=== PATIENT | female | born 1980 | race Caucasian/White ===

== ENCOUNTER 2017-12-12 18:08 | Emergency (ER) | payer MEDICAID ==
--- NOTE | 2017-12-12 19:22 | XRAY Report ---
Reason: soa, cough, hypoxia Procedure Date: 12/12/2017 Accession Number: [id number] / [id number] Procedure: XR - Chest 2 View X-Ray CPT Code: 70332 FULL RESULT: EXAM: CHEST RADIOGRAPHY EXAM DATE: 12/12/2017 07:01 PM. CLINICAL HISTORY: Dyspnea COMPARISON: None. TECHNIQUE: 2 views. FINDINGS: Lungs/Pleura: No focal opacities evident. No pleural effusion. No pneumothorax. Normal volumes. Mediastinum: Heart and mediastinal contours are unremarkable. Other: None. IMPRESSION: No acute intrathoracic plain film abnormality. RADIA
[2017-12-12] MEDS ORDERED: SODIUM CHLORIDE 0.9% 1,000 ML IV ONE (19:41)
[2017-12-12 19:45] LABS: MUDS CUTOFF CONCENTRATIONS CUTOFF CONC BELOW:
[2017-12-12 19:57] LABS: BILIRUBIN,URINE NEGATIVE (NEGATIVE); GLUCOSE, URINE (UA) 250 mg/dL (NEGATIVE); KETONES,URINE (UA) TRACE mg/dL (NEGATIVE); LEUKOCYTE ESTERASE, URINE MODERATE (NEGATIVE); NITRITE,URINE POSITIVE (NEGATIVE); OCCULT BLOOD,URINE NEGATIVE (NEGATIVE); PH,URINE 6.5 PH (5.0-7.5); PROTEIN,URINE 100 mg/dL (NEGATIVE); UROBILINOGEN,URINE >=8.0 E.U./dL (NORMAL)
[2017-12-12 20:00] LABS: ALBUMIN 3.5 g/dL (3.2-5.5); ALBUMIN/GLOBULIN RATIO 1.1 (1.0-2.2); ALKALINE PHOSPHATASE 96 IU/L (42-121); ALT ALANINE AMINOTRANSFERASE 90 IU/L (10-60); AST ASPARTATE AMINOTRANSFERASE 133 IU/L (10-42); BILIRUBIN,TOTAL 1.7 mg/dL (0.2-1.0); BUN - BLOOD UREA NITROGEN < 5 mg/dL (6-20); CALCIUM 8.7 mg/dL (8.5-10.3); CARBON DIOXIDE - CO2 26 mmol/L (21-32); CHLORIDE 100 mmol/L (101-111); CREATININE 0.4 mg/dL (0.4-1.0); GFR - MDRD 181 (>89); GLUCOSE 100 mg/dL (70-100); LIPASE 66 U/L (22-51); MAGNESIUM 1.7 mg/dL (1.7-2.8); SODIUM 137 mmol/L (135-145); TOTAL PROTEIN 6.8 g/dL (6.7-8.2)
[2017-12-12 20:01] LABS: BASOPHILS # (AUTO) 0.3 10^3/uL (0.0-0.1); BASOPHILS % (AUTO) 3.6 %; EOSINOPHILS # (AUTO) 0.1 10^3/uL (0.0-0.7); EOSINOPHILS % (AUTO) 1.8 %; HGB - HEMOGLOBIN 10.6 g/dL (12.0-16.0); LYMPHOCYTES # (AUTO) 1.1 10^3/uL (1.5-3.5); LYMPHOCYTES % (AUTO) 14.2 %; MEAN CORPUSCULAR HEMOGLOBIN 38.1 pg (27.0-31.0); MEAN CORPUSCULAR HGB CONC 34.1 g/dL (32.0-36.0); MEAN CORPUSCULAR VOLUME 111.8 fL (81.0-99.0); MEAN PLATELET VOLUME 8.6 fL (7.9-10.8); MONOCYTES # (AUTO) 0.9 10^3/uL (0.0-1.0); MONOCYTES % (AUTO) 12.2 %; NEUTROPHILS # (AUTO) 5.2 10^3/uL (1.5-6.6); NEUTROPHILS % (AUTO) 68.2 %; PLT - PLATELET COUNT 435 10^3/uL (130-450); RED BLOOD COUNT 2.79 10^6/uL (4.20-5.40); RED CELL DISTRIBUTION WIDTH 16.1 % (12.0-15.0); WHITE BLOOD COUNT 7.7 x10^3/uL (4.8-10.8)
[2017-12-12 20:02] LABS: CLARITY,URINE CLOUDY (CLEAR)
[2017-12-12 20:03] LABS: AMPHETAMINE SCREEN,URINE NEGATIVE (NEGATIVE); BENZODIAZEPINES SCREEN, URINE POSITIVE (NEGATIVE); COCAINE SCREEN URINE NEGATIVE (NEGATIVE); METHADONE SCREEN, URINE NEGATIVE (NEGATIVE); METHAMPHETAMINES SCREEN, URINE NN (NEGATIVE); OPIATE SCREEN, URINE NEGATIVE (NEGATIVE); OXYCODONE SCREEN, URINE NEGATIVE (NEGATIVE); PROPOXYPHENE SCREEN, URINE NEGATIVE (NEGATIVE); TRICYCLIC ANTIDEPRESSANT,URINE NEGATIVE (NEGATIVE)
[2017-12-12 20:04] LABS: BACTERIA,URINE Many /HPF (None Seen); RBC,URINE 0-5 /HPF (0-5); SQUAMOUS EPITHELIAL CELL,UR FEW Squamous (<= Few)
[2017-12-12 20:20] LABS: HCG,QUALITATIVE BLOOD NEGATIVE
--- NOTE | 2017-12-12 20:30 | ED Physician Documentation ---
History of Present Illness - Stated complaint Stated Complaint: DIZZY, FREQUENCY URINATING - Chief complaint Chief Complaint: Neuro - History obtained from History obtained from: Patient - Additonal information Additional information: 36-year-old female presents the emergency department with increasing dizziness, lightheadedness, shortness of breath and general weakness over the past several days. The patient reports having increased cystitis, the patient has chronic cystitis. The patient reports taking [id number] Pyridium to help manage her symptoms. The patient has had multiple bottles and in the past 2 days is almost gone through one bottle. Symptoms are described as severe. No relieving factors. No other associated symptoms Review of Systems Constitutional: reports: Fatigue Eyes: denies: Discharge Ears: denies: Ear pain Nose: denies: Congestion Throat: denies: Sore throat Cardiac: denies: Chest pain / pressure Respiratory: reports: Dyspnea GI: denies: Abdominal Pain : reports: Dysuria Skin: denies: Rash Musculoskeletal: denies: Neck pain, Extremity pain Neurologic: reports: Generalized weakness. denies: Altered mental status, Unresponsive Immunocompromised: denies: Chemotherapy PD PAST MEDICAL HISTORY - Past Medical History Past Medical History: No Cardiovascular: None Respiratory: None Neuro: None Endocrine/Autoimmune: None GI: None [employer]ETING [employer]ENT: None : Chronic bladder infection HEENT: None Psych: None Musculoskeletal: None Derm: None - Past Surgical History Past Surgical History: No - Present Medications Home Medications: Ambulatory Orders Medication Instructions Recorded Confirmed Cephalexin [Keflex] 500 mg PO BID #14 capsule 12/12/17 - Allergies Allergies/Adverse Reactions: Allergies Allergy/AdvReac Type Severity Reaction Status Date / Time No Known Drug Allergies Allergy Verified 12/12/17 19:28 - Social History Does the pt smoke?: Yes Smoking Status: Current some day smoker Does the pt drink ETOH?: Yes Does the pt have substance abuse?: No - Immunizations Immunizations are current?: Yes - POLST Patient has POLST: No PD ED PE NORMAL - General General: Alert and oriented X 3 - HEENT HEENT: Atraumatic, PERRL, EOMI, Ears normal - Cardiac Cardiac: Strong equal pulses, Other (Regular rhythm, tachycardia) - Respiratory Respiratory: No respiratory distress, Clear bilaterally - Abdomen Abdomen: Soft, Non tender - Derm Derm: Normal color - Extremities Extremities: No deformity, Normal ROM s pain - Neuro Neuro: Alert and oriented X 3, Normal speech - Psych Psych: Normal mood Results - Vitals Vitals: Vital Signs - 24 hr 12/12/17 12/12/17 12/12/17 18:26 19:09 20:30 Temperature 36.2 C L Heart Rate 124 H 100 Respiratory 18 100 H Rate Blood Pressure 110/72 122/100 H O2 Saturation 85 L 92 89 L 12/12/17 12/12/17 12/12/17 22:02 22:28 22:58 Temperature Heart Rate 95 89 103 H Respiratory 16 13 15 Rate Blood Pressure 107/74 107/74 105/84 H O2 Saturation 90 L 89 L 96 12/12/17 12/12/17 12/12/17 23:00 23:05 23:45 Temperature 37.2 C Heart Rate 100 102 H 109 H Respiratory 17 17 18 Rate Blood Pressure 105/84 H 114/85 H 102/75 O2 Saturation 95 94 94 Oxygen O2 Source Room air Oxygen Flow Rate 15 - EKG (time done) 19:22 Rate: Rate (enter#) Rhythm: NSR Intervals: Normal ME, QRS normal QRS: Normal Ischemia: Normal ST segments - Labs Labs: Laboratory Tests 12/12/17 12/12/17 12/12/17 19:14 19:40 19:40 WBC 7.7 RBC 2.79 L Hgb 10.6 L Hct 31.2 L MCV 111.8 H MCH 38.1 H MCHC 34.1 RDW 16.1 H Plt Count 435 MPV 8.6 Neut # (Auto) 5.2 Lymph # (Auto) 1.1 L Gilchrist # (Auto) 0.9 Eos # (Auto) 0.1 Baso # (Auto) 0.3 H Absolute Nucleated RBC 0.00 Nucleated RBC % 0.0 Manual Slide Review Indicated Bld Gas Analysis Time Sample Site ABG pH ABG pCO2 ABG pO2 ABG HCO3 ABG Total CO2 ABG O2 Saturation ABG Oximetry Spot Check ABG Base Excess ABG Hemoglobin ABG Oxyhemoglobin ABG Carboxyhemoglobin ABG Methemoglobin Terrell Test O2 Delivery Device O2 Liters/Min Sodium 137 Potassium 3.0 L Chloride 100 L Carbon Dioxide 26 Anion Gap 11.0 BUN < 5 L Creatinine 0.4 Estimated GFR (MDRD) 181 Glucose 100 Calcium 8.7 Magnesium 1.7 Total Bilirubin 1.7 H AST 133 H ALT 90 H Alkaline Phosphatase 96 Troponin I Total Protein 6.8 Albumin 3.5 Globulin 3.3 Albumin/Globulin Ratio 1.1 Lipase 66 H Serum HCG, Qual Urine Color DK. ORANGE Urine Clarity CLOUDY Urine pH 6.5 Ur Specific Rincon 1.010 Urine Protein 100 H Urine Glucose (UA) 250 H Urine Ketones TRACE Urine Occult Blood NEGATIVE Urine Nitrite POSITIVE H Urine Bilirubin NEGATIVE Urine Urobilinogen >=8.0 H Ur Leukocyte Esterase MODERATE H Urine RBC 0-5 Urine WBC 6-10 H Ur Squamous Epith Cells FEW Squamous Urine Bacteria Many H Ur Microscopic Review INDICATED Urine Culture Comments INDICATED Salicylates Urine Opiates Screen NEGATIVE Ur Oxycodone Screen NEGATIVE Urine Methadone Screen NEGATIVE Ur Propoxyphene Screen NEGATIVE Acetaminophen Ur Barbiturates Screen NEGATIVE Ur Tricyclics Screen NEGATIVE Ur Phencyclidine Scrn NEGATIVE Ur Amphetamine Screen NEGATIVE U Methamphetamines Scrn NN U Benzodiazepines Scrn POSITIVE H Urine Cocaine Screen NEGATIVE U Cannabinoids Screen POSITIVE H Ethyl Alcohol 8.8 12/12/17 12/12/17 12/12/17 19:40 19:40 19:40 WBC RBC Hgb Hct MCV MCH MCHC RDW Plt Count MPV Neut # (Auto) Lymph # (Auto) Gilchrist # (Auto) Eos # (Auto) Baso # (Auto) Absolute Nucleated RBC Nucleated RBC % Manual Slide Review Bld Gas Analysis Time Sample Site ABG pH ABG pCO2 ABG pO2 ABG HCO3 ABG Total CO2 ABG O2 Saturation ABG Oximetry Spot Check ABG Base Excess ABG Hemoglobin ABG Oxyhemoglobin ABG Carboxyhemoglobin ABG Methemoglobin Terrell Test O2 Delivery Device O2 Liters/Min Sodium Potassium Chloride Carbon Dioxide Anion Gap BUN Creatinine Estimated GFR (MDRD) Glucose Calcium Magnesium Total Bilirubin AST ALT Alkaline Phosphatase Troponin I < 0.04 Total Protein Albumin Globulin Albumin/Globulin Ratio Lipase Serum HCG, Qual NEGATIVE Urine Color Urine Clarity Urine pH Ur Specific Rincon Urine Protein Urine Glucose (UA) Urine Ketones Urine Occult Blood Urine Nitrite Urine Bilirubin Urine Urobilinogen Ur Leukocyte Esterase Urine RBC Urine WBC Ur Squamous Epith Cells Urine Bacteria Ur Microscopic Review Urine Culture Comments Salicylates < 6.0 Urine Opiates Screen Ur Oxycodone Screen Urine Methadone Screen Ur Propoxyphene Screen Acetaminophen < 10 L Ur Barbiturates Screen Ur Tricyclics Screen Ur Phencyclidine Scrn Ur Amphetamine Screen U Methamphetamines Scrn U Benzodiazepines Scrn Urine Cocaine Screen U Cannabinoids Screen Ethyl Alcohol 12/12/17 21:03 WBC RBC Hgb Hct MCV MCH MCHC RDW Plt Count MPV Neut # (Auto) Lymph # (Auto) Gilchrist # (Auto) Eos # (Auto) Baso # (Auto) Absolute Nucleated RBC Nucleated RBC % Manual Slide Review Bld Gas Analysis Time 2100 Sample Site RIGHT RADIAL ABG pH 7.68 H* ABG pCO2 18 L* ABG pO2 457 H* ABG HCO3 20.9 L ABG Total CO2 21.4 ABG O2 Saturation 100 H ABG Oximetry Spot Check 89 ABG Base Excess 1.5 ABG Hemoglobin 9.1 L ABG Oxyhemoglobin 80 L ABG Carboxyhemoglobin 4.5 H ABG Methemoglobin 15.9 H Terrell Test POSITIVE O2 Delivery Device NON REBREATHER MASK O2 Liters/Min 15.00 Sodium Potassium Chloride Carbon Dioxide Anion Gap BUN Creatinine Estimated GFR (MDRD) Glucose Calcium Magnesium Total Bilirubin AST ALT Alkaline Phosphatase Troponin I Total Protein Albumin Globulin Albumin/Globulin Ratio Lipase Serum HCG, Qual Urine Color Urine Clarity Urine pH Ur Specific Rincon Urine Protein Urine Glucose (UA) Urine Ketones Urine Occult Blood Urine Nitrite Urine Bilirubin Urine Urobilinogen Ur Leukocyte Esterase Urine RBC Urine WBC Ur Squamous Epith Cells Urine Bacteria Ur Microscopic Review Urine Culture Comments Salicylates Urine Opiates Screen Ur Oxycodone Screen Urine Methadone Screen Ur Propoxyphene Screen Acetaminophen Ur Barbiturates Screen Ur Tricyclics Screen Ur Phencyclidine Scrn Ur Amphetamine Screen U Methamphetamines Scrn U Benzodiazepines Scrn Urine Cocaine Screen U Cannabinoids Screen Ethyl Alcohol - Rads (name of study) Chest x-ray Radiology: Final report received PD MEDICAL DECISION MAKING - ED course ED course: The patient's symptoms seem to be secondary to methemoglobinemia from excessive use of Pyridium. Methylene blue was ordered to help manage the patient's symptoms and a dose of 1/kg was given. The pharmacist came in from home to mix the methylene blue and the patient received the infusion. The findings were discussed with the poison control, they agree with the plan. They will be available for further consultation The case was discussed with the hospitalist Dr. Edgar Multiple times. She has refused admission to our hospital since she feels that the patient is too complicated given the obscure diagnosis and recommends transfer to a higher level of care. The findings and plan were discussed with the hospitalist at [facility] and they agreed to transfer. The patient had multiple re-evaluations the emergency department and was much improved. The patient currently has no symptoms and feels completely resolved. I discussed with the patient multiple times the plan. After, a transfer was secured the patient has declined transfer. I discussed with the patient the reason for transfer, the patient understands but still does not want admission or transfer. The patient is of sound mind and capable of making his decision. I discussed with her the risk and benefits and the patient accepts all the risks. I recommend returning to the emergency department any point for reevaluation - Critical Care Time(min): 30 Time Includes: Direct patient care, Review records, Reassess patient, Document care, Coordinate care, Medical consult Data interpretation: Labs, Pulse ox, ABG, CXR Procedures included in critical care time: See progress note Procedures excluded from critical care time: EKG - Sepsis Event Vital Signs: Vital Signs - 24 hr 12/12/17 12/12/17 12/12/17 18:26 19:09 20:30 Temperature 36.2 C L Heart Rate 124 H 100 Respiratory 18 100 H Rate Blood Pressure 110/72 122/100 H O2 Saturation 85 L 92 89 L 12/12/17 12/12/17 12/12/17 22:02 22:28 22:58 Temperature Heart Rate 95 89 103 H Respiratory 16 13 15 Rate Blood Pressure 107/74 107/74 105/84 H O2 Saturation 90 L 89 L 96 12/12/17 12/12/17 12/12/17 23:00 23:05 23:45 Temperature 37.2 C Heart Rate 100 102 H 109 H Respiratory 17 17 18 Rate Blood Pressure 105/84 H 114/85 H 102/75 O2 Saturation 95 94 94 Oxygen O2 Source Room air Oxygen Flow Rate 15 Departure - Departure Disposition: 07 Against Medical Advice Clinical Impression: Methemoglobinemia Acute cystitis Qualifiers: Hematuria presence: without hematuria Qualified Code(s): N30.00 - Acute cystitis without hematuria Condition: Good Follow-Up: [facility] [Provider Group] Prescriptions: Cephalexin [Keflex] 500 mg PO BID #14 capsule Comments: You have refused Transfer for further observation and management of your acute condition. You understand that you are potentially at risk for a rebound of the methemoglobinemia and potentially could need further treatment. The understand that this could put you at risk for significant disability and potentially . You have excepted these risks and are comfortable with this plan. Please return back to the emergency department immediately at any point for reevaluation
[2017-12-12 21:07] LABS: ABG PH 7.68 (7.35-7.45)
[2017-12-12 21:08] LABS: ABG BASE EXCESS 1.5 mmol/L (-2.0-3.0); ABG HCO3 20.9 mmol/L (22.0-26.0); ABG OXYGEN SATURATION 100 % (94-98); ABG PCO2 18 mmHg (34-45); ABG PO2 457 mmHg (80-100); ABG TCO2 21.4 MMOL/L (21.0-29.0); HEMOGLOBIN TOTAL, ARTERIAL WB 9.1 g/dL (12.0-18.0)
[2017-12-12 21:09] LABS: CARBOXYHEMOGLOBIN ARTERIAL 4.5 % (0-1.5); OXYHEMOGLOBIN, ARTERIAL 80 % (94-100)
[2017-12-12 21:10] LABS: ALLEN TEST POSITIVE
[2017-12-12] MEDS ORDERED: METHYLENE BLUE 100 MG/10 ML VIAL IVP ONE (21:13)
[2017-12-12 21:52] LABS: SALICYLATE < 6.0 mg/dL
[2017-12-12 22:11] LABS: ACETAMINOPHEN < 10 ug/mL (10-30)
[2017-12-12] MEDS ORDERED: METHYLENE BLUE IV STA (22:15)
[2017-12-12] MEDS ORDERED: DEXTROSE 5% IV STA (22:15)
[2017-12-13 00:50] VITALS: BP 112/75
== END 2017-12-13 01:02 | disposition left against medical advice (07) ==
LOC: ED 18:08
DX: D74.9 Methemoglobinemia, unspecified (principal); N30.00 Acute cystitis without hematuria; F17.200 Nicotine dependence, unspecified, uncomplicated
CPT/HCPCS: 36415; 71046; 80053; 80306; 80307; 80320; 80329; 81001; 81003; 82375; 82803; 83690; 83735; 84484; 84703; 85025; 87077; 87086; 87181; 93005; 96361; 96365; 99285; 99291